=== PATIENT | female | born 1950 | race Caucasian/White ===

== ENCOUNTER → 2017-03-28 | Outpatient (CLI) | payer BC ==
--- NOTE | 2017-03-28 15:53 | RAD ---
DATE: 03/28/2017 EXAM: DIGITAL SCREEN BILAT W/CAD HISTORY: Screening COMPARISON: None. This study was interpreted with the benefit of Computerized Aided Detection (CAD). FINDINGS: Breast Density: SCATTERED The breast parenchyma shows scattered fibroglandular densities. Breast parenchyma level B. No dominant mass or suspect group of calcifications is seen IMPRESSION: 9 finding BI-RADS CATEGORY: 2 BENIGN FINDING(S) RECOMMENDED FOLLOW-UP: 12M 12 MONTH FOLLOW-UP PQRS compliance statement: Patient information was entered into a reminder system with a target due date 03/28/2018 for the next mammogram. Mammography is a sensitive method for finding small breast cancers, but it does not detect them all and is not a substitute for careful clinical examination. A negative mammogram does not negate a clinically suspicious finding and should not result in delay in biopsying a clinically suspicious abnormality. "Our facility is accredited by the [employer] Mammography Program."
== END | disposition home or self-care (01) ==
LOC: MAMMO 15:22
PROVIDERS: ATTEND Family Medicine
DX: Z12.31 Encounter for screening mammogram for malignant neoplasm of breast (principal)
CPT/HCPCS: G0202; 77067

== ENCOUNTER → 2017-11-03 | Outpatient (CLI) | payer MEDICARE | END | disposition home or self-care (01) | LOC: MAMMO 13:39 | DX: N63.10 Unspecified lump in the right breast, unspecified quadrant (principal) | CPT/HCPCS: 76641; 77065 ==

== ENCOUNTER → 2017-11-22 | Outpatient (CLI) | payer MEDICARE | END | disposition home or self-care (01) | LOC: US 12:16 | DX: N63.10 Unspecified lump in the right breast, unspecified quadrant (principal) | CPT/HCPCS: 19081; 76942; 77065; 88305; 88341; 88342; 88361; C1713 ==

== ENCOUNTER → 2017-11-30 | Outpatient (CLI) | payer MEDICARE | END | disposition home or self-care (01) | LOC: PETSC 08:16 | DX: C50.411 Malignant neoplasm of upper-outer quadrant of right female breast (principal); Z85.3 Personal history of malignant neoplasm of breast | CPT/HCPCS: 78815; A9552 ==

== ENCOUNTER 2017-12-05 06:55 | Day surgery (SDC) | payer MEDICARE ==
[2017-12-05] MEDS ORDERED: LIDOCAINE 1% PF 2 ML VIAL. ID ×2 (07:00)
[2017-12-05] MEDS ORDERED: MORPHINE SULFATE 2 MG/ML DISP.SYRIN. IV ×2 (07:00)
[2017-12-05] MEDS ORDERED: HYDROmorphone 2 MG/ML VIAL IV ×2 (07:00)
[2017-12-05] MEDS ORDERED: fentaNYL PF VIAL 100 MCG/2 ML VIAL IV ×2 (07:00)
[2017-12-05] MEDS ORDERED: PROCHLORPERAZINE 10 MG/2 ML VIAL. IV ×2 (07:00)
[2017-12-05] MEDS: IV RINGERS,LACTATED 1000ML 1,000 ML IV ×4 (07:26→11:11)
[2017-12-05] MEDS ORDERED: LIDOCAINE 1% PF 30 ML VIAL. ×2 (07:43)
[2017-12-05] MEDS ORDERED: LIDOCAINE 2% PF Vial for OR 5 ML VIAL. ×2 (08:00)
[2017-12-05] MEDS ORDERED: PROPOFOL 20 ML IV ×2 (08:00)
[2017-12-05] MEDS ORDERED: fentaNYL PF VIAL 100 MCG/2 ML VIAL ×2 (08:01)
[2017-12-05] MEDS ORDERED: MIDAZOLAM HCL/PF 2 MG/2 ML VIAL. ×2 (08:01)
[2017-12-05] MEDS: ceFAZolin SODIUM 1 GM in IV DEXTROSE 5% 50 ML IV (08:45)
[2017-12-05] MEDS: HEPARIN SODIUM 5,000 UNIT in IV NORMAL SALINE 500ML BAG 500 ML IRR (09:14)
[2017-12-05] MEDS ORDERED: SEVOFLURANE 31 TO 60 MINUTES. IH ×2 (09:22)
[2017-12-05] MEDS ORDERED: SEVOFLURANE 61 TO 120 MINUTES. IH ×2 (09:22)
[2017-12-05] MEDS ORDERED: ONDANSETRON PF 4 MG/2 ML VIAL. ×2 (09:22)
[2017-12-05] MEDS ORDERED: DEXAMETHASONE SOD PHOS 20 MG/5 ML VIAL. ×2 (09:22)
[2017-12-05] MEDS: fentaNYL PF VIAL 100 MCG/2 ML VIAL IV ×4 (09:51→10:05)
[2017-12-05] MEDS: HYDROcodone/APAP 5/325MG 1 TAB TABLET PO ×2 (10:39)
[2017-12-05] MEDS: ONDANSETRON PF 4 MG/2 ML VIAL. IV ×2 (11:06)
== END 2017-12-05 12:04 | disposition home or self-care (01) ==
LOC: SURG 06:55
DX: C50.919 Malignant neoplasm of unspecified site of unspecified female breast (principal); C50.911 Malignant neoplasm of unspecified site of right female breast (principal); E78.5 Hyperlipidemia, unspecified; E66.9 Obesity, unspecified; K21.9 Gastro-esophageal reflux disease without esophagitis; Z68.26 Body mass index [BMI] 26.0-26.9, adult; Z80.42 Family history of malignant neoplasm of prostate; Z79.899 Other long term (current) drug therapy
CPT/HCPCS: 36556; 36561; 71045; 77001; C1788; J0690; J1100; J1644; J2250; J2405; J2704; J3010; J7040

== ENCOUNTER → 2017-12-06 | Outpatient (CLI) | payer MEDICARE | END | disposition home or self-care (01) | LOC: ECHO 13:57 | DX: I08.1 Rheumatic disorders of both mitral and tricuspid valves (principal); I27.20 Pulmonary hypertension, unspecified; C50.919 Malignant neoplasm of unspecified site of unspecified female breast | CPT/HCPCS: 93306 ==

== ENCOUNTER 2018-05-07 06:52 | Observation (INO) | payer MEDICARE, BC ==
[2018-05-07] MEDS ORDERED: LIDOCAINE 1% PF 2 ML VIAL. ID (07:00)
[2018-05-07] MEDS ORDERED: PROCHLORPERAZINE 10 MG/2 ML VIAL. IV (07:00)
[2018-05-07] MEDS: LIDOCAINE WITH 8.4% SOD BICARB 3 ML DISP.SYRIN. INJ ×2 (07:00→09:34)
[2018-05-07] MEDS ORDERED: MORPHINE SULFATE 2 MG/ML DISP.SYRIN. IV ×2 (07:00→12:15)
[2018-05-07] MEDS ORDERED: fentaNYL PF VIAL 100 MCG/2 ML VIAL IV ×2 (07:00)
[2018-05-07] MEDS ORDERED: ONDANSETRON PF 4 MG/2 ML VIAL. IV ×2 (07:00→12:15)
[2018-05-07] MEDS: IV RINGERS,LACTATED 1000ML 1,000 ML IV (07:48)
[2018-05-07] MEDS ORDERED: METHYLENE BLUE 1% 10 ML VIAL. (07:56)
[2018-05-07] MEDS ORDERED: LIDOCAINE 2% PF Vial for OR 5 ML VIAL. (09:18)
[2018-05-07] MEDS ORDERED: fentaNYL PF VIAL 250 MCG/5 ML VIAL (09:18)
[2018-05-07] MEDS ORDERED: PROPOFOL 20 ML IV (09:18)
[2018-05-07] MEDS ORDERED: MIDAZOLAM HCL/PF 2 MG/2 ML VIAL. (09:18)
[2018-05-07] MEDS ORDERED: ONDANSETRON PF 4 MG/2 ML VIAL. (09:56)
[2018-05-07] MEDS ORDERED: DEXAMETHASONE SOD PHOS 20 MG/5 ML VIAL. (09:56)
[2018-05-07] MEDS: ISOSULFAN BLUE 50 MG/5 ML VIAL. SQ (10:48)
[2018-05-07] MEDS ORDERED: IV 1/2 NORMAL SALINE 1,000 ML IV (12:12)
[2018-05-07] MEDS ORDERED: 0.9 % SODIUM CHLORIDE 10 ML DISP.SYRIN. IV (12:15)
[2018-05-07] MEDS ORDERED: HYDROcodone/APAP 5/325MG 1 TAB TABLET PO (12:15)
[2018-05-07] MEDS ORDERED: SEVOFLURANE 61 TO 120 MINUTES. IH (12:41)
[2018-05-07] MEDS: HYDROcodone/APAP 5/325MG 1 TAB TABLET PO ×2 (13:56→21:06)
[2018-05-08] MEDS: HYDROcodone/APAP 5/325MG 1 TAB TABLET PO ×2 (06:41→12:16)
== END 2018-05-08 12:43 | disposition home or self-care (01) ==
LOC: MAMMO 06:52 → 4 NORTH 12:12
DX: C50.911 Malignant neoplasm of unspecified site of right female breast (principal)
CPT/HCPCS: 19083; 38792; 76098; 76942; 77065; 88305; 88307; 88331; 88342; 96374; A7015; A9541; G0378; G0379; J0690; J1100; J2001; J2250; J2405; J2704; J3010; J7120; Q9968

== ENCOUNTER → 2018-07-19 | Outpatient (CLI) | payer MEDICARE, OTHER ==
[2018-05-08 11:13] VITALS: BP 109/64
[~2018-07-19] MED LIST: ACET500T33 PO; ALEN70TA5 PO; CALC600T23 PO; CETI10TA22 PO; CHOL10002 PO; HYDR-2758 PO; HYDR-971 PO; NYST100054 SWSW; POTA20TA82 PO; VITAMIN D PO; [UNRECOGNIZED DRUG - OTHER] PO
--- NOTE | 2018-07-19 12:09 | RAD ---
Examination: GUID NDL PLACE/ASPI/BX History: rt thyroid nodule Comparison/Correlation: None Findings: Risks and benefits of ultrasound-guided thyroid fine-needle aspiration were discussed with the patient and informed consent was obtained. Blunting of the right lower neck with ChloraPrep was performed. Sterile towels were then placed. Centrally, 4 cc 1 percent lidocaine was injected under ultrasound guidance anterolaterally at the lower thyroid mass level. A 25-gauge needle attached to a 10 cc syringe was then utilized to aspirate the right thyroid mass. Total of 4 25-gauge needles were utilized and specimens were provided to the pathology department accounting representative in the room at the time of the procedure. The patient tolerated procedure well without a hematoma or other complication at the conclusion of the exam. Impression: Successful aspiration of the right thyroid lobe mass. Electronically signed by: Yash Terrell MD (07/19/2018 12:05 PM) [facility]
--- NOTE | 2018-07-20 18:08 | PATHOLOGY ---
Note [facility] Accession Number: [id number] TESTS RESULT FLAG UNITS REF RANGE LAB Clinician Provided Cytology Information No. of containers..01 Other (Miscellaneous) Source: RIGHT THYROID DIAGNOSIS: RIGHT THYROID NEGATIVE FOR MALIGNANT CELLS. BETHESDA CATEGORY II. SPECIMEN CONSISTS OF BENIGN FOLLICULAR CELLS, HEMOSIDERIN-LADEN MACROPHAGES, COLLOID, AND BLOOD. THIS PATTERN IS CONSISTENT WITH A BENIGN FOLLICULAR NODULE. THIS INTERPRETATION INCLUDES EVALUATION OF A CELL BLOCK. Pathologist ICD10: 02 E04.1 Signed out by: Stan Maher MD, Pathologist NPI- [id number] Performed by: Eldon Antonio, Mat Tester ([facility]) Gross description: 01 30ML, RED, CLOUDY /LCS FLAG LEGEND: L-Low Normal,H-High Normal,LL-Alert Low,HH-Alert High <-Panic Low,>-Panic High,A-Abnormal,AA-Critical Abnormal Performed at: [facility] [place] [address] [place] [address] Dax Eden MD, 02 [facility] [address] [place] [address] Stan Maher MD, Specimen Comment: A courtesy copy of this report has been sent to Specimen Comment: [phone]. Specimen Comment: Report sent to DR LAMB Specimen Comment: A duplicate report has been generated due to demographic updates. Performed at: 01 [facility] [address], [place], [place] [id number] MD Dax Eden MD Phone: [phone]
== END | disposition home or self-care (01) ==
LOC: US 08:05
PROVIDERS: ATTEND Surgery
DX: E04.1 Nontoxic single thyroid nodule (principal); Z91.011 Allergy to milk products
CPT/HCPCS: 10022; 76942; 88173; 88305

== ENCOUNTER → 2018-11-13 | Outpatient (CLI) | payer MEDICARE ==
[2018-05-08 11:13] VITALS: BP 109/64
[~2018-11-13] MED LIST changes: -HYDR-2758 PO; +HYDR-2761 PO; +HYDR-3164 PO; -HYDR-971 PO
--- NOTE | 2018-11-13 13:45 | RAD ---
DATE: 11/13/2018 EXAM: MAMMO MEHREEN LINDA BILAT HISTORY: Right breast cancer, grade 3 poorly differentiated. COMPARISON: Prior mammograms from 05/07/2018, 11/03/2017, 03/28/2017 This study was interpreted with the benefit of Computerized Aided Detection (CAD). Breast Density: SCATTERED The breast parenchyma shows scattered fibroglandular densities. Breast parenchyma level B. FINDINGS: 3-D tomosynthesis was performed in CC and MLO projections. 2-D CC and MLO views were obtained. Right breast: Subtle architectural distortion is identified in the posterior upper right breast at site of prior lumpectomy. No suspicious masses are identified. No microcalcifications are noted. Left breast: No suspicious medical stations, masses or areas of architectural distortion. IMPRESSION: 1. Post therapy changes are identified in the right breast. Findings are benign. Recommend 12 month follow-up mammogram or sooner if symptoms warrant. 2. Negative left mammogram. BI-RADS CATEGORY: 2 BENIGN FINDING(S) RECOMMENDED FOLLOW-UP: 12M 12 MONTH FOLLOW-UP PQRS compliance statement: Patient information was entered into a reminder system with a target due date 11/13/2019 for the next mammogram. Mammography is a sensitive method for finding small breast cancers, but it does not detect them all and is not a substitute for careful clinical examination. A negative mammogram does not negate a clinically suspicious finding and should not result in delay in biopsying a clinically suspicious abnormality. "Our facility is accredited by the [employer] Mammography Program."
== END | disposition home or self-care (01) ==
LOC: MAMMO 12:51
PROVIDERS: ATTEND Internal Medicine Hematology & Oncology
DX: Z08 Encounter for follow-up examination after completed treatment for malignant neoplasm (principal); Z85.3 Personal history of malignant neoplasm of breast
CPT/HCPCS: 77066; G0279; 77062

== ENCOUNTER → 2019-02-27 | Outpatient (CLI) | payer MEDICARE ==
[2018-05-08 11:13] VITALS: BP 109/64
[~2019-02-27] MED LIST changes: -ALEN70TA5 PO; +ALEN70TA6 PO; +ANAS1TAB47 PO
--- NOTE | 2019-02-27 16:18 | RAD ---
Thyroid ultrasound, 02/27/2019: HISTORY: Follow-up thyroid nodule The right lobe of the gland measures 5.9 x 2.9 x 3.2 cm while the left lobe of the gland measures 4.8 x 1.0 x 1.1 cm. The gland is heterogeneous. There is a dominant heterogeneous solid nodule in the right lobe of the gland. There is internal color flow. The nodule is predominantly isoechoic relative to the remainder of the gland although there are smaller hypoechoic and/or cystic spaces within this mass. The mass demonstrates a hypoechoic rim. No internal calcifications are seen. In the sagittal plane it measures 4.5 cm in length compared to a measurement of 3.7 cm on the previous study of 01/01/2018. Its AP dimension on the sagittal images is 2.9 cm, similar to the previous exam. IMPRESSION: Dominant solid nodule in the right thyroid lobe which appears to have increased in size since 01/01/2018. Correlation with the results of the prior thyroid biopsy is suggested. Electronically signed by: Bassam Jacques MD (02/27/2019 4:15 PM) [facility]
== END | disposition home or self-care (01) ==
LOC: US 14:03
PROVIDERS: ATTEND Surgery
DX: E04.1 Nontoxic single thyroid nodule (principal)
CPT/HCPCS: 76536

== ENCOUNTER → 2019-03-25 | Outpatient (CLI) | payer MEDICARE ==
[2018-05-08 11:13] VITALS: BP 109/64
--- NOTE | 2019-03-25 17:07 | KCIC ---
EXAM: Dual energy x-ray absorptiometry (DEXA). HISTORY: Osteopenia. COMPARISON: None. TECHNIQUE: Dual energy x-ray absorptiometry of the lumbar spine and left hip was performed. Calculation of bone mineral density based on standard deviations above or below the expected young adult normal value (T-score) was completed. FINDINGS: The average bone mineral density in the 1st through 4th lumbar vertebrae is 0.963 g/cmxcm, corresponding with a T-score of -0.8. The average total bone mineral density in the left hip is 0.771 g/cmxcm, corresponding with a T-score of -1.4. IMPRESSION: 1. Osteopenia measured at the left hip. 2. Normal bone mineral density measured at the lumbar spine. Note: Definitions established by the World Health Organization: 1. Normal: T-score is -1.0 or above. 2. Osteopenia: T-score is between -1.0 and -2.5 . 3. Osteoporosis: T-score is -2.5 or below. Electronically signed by: Megan Aguilar MD (03/25/2019 5:04 PM) [facility]
== END | disposition home or self-care (01) ==
LOC: KCIC DEXA 03-11 14:43
PROVIDERS: ATTEND Internal Medicine Hematology & Oncology
DX: M85.80 Other specified disorders of bone density and structure, unspecified site (principal); Z17.0 Estrogen receptor positive status [ER+]; Z79.811 Long term (current) use of aromatase inhibitors; Z85.3 Personal history of malignant neoplasm of breast
CPT/HCPCS: 77080

== ENCOUNTER 2019-05-20 06:09 | Observation (INO) | payer MEDICARE ==
[2019-05-20] VITALS (11 sets, daily range): BP systolic 116–146; BP diastolic 63–81
[~2019-05-20] VITALS: Ht 162.6 cm; Wt 61.5 kg
[~2019-05-20 06:09] MED LIST changes: +CYAN-25 PO
[2019-05-20] MEDS ORDERED: PROCHLORPERAZINE 10 MG/2 ML VIAL. IV PRN (07:00)
[2019-05-20] MEDS ORDERED: MORPHINE SULFATE 2 MG/ML VIAL. IV PRN (07:00)
[2019-05-20] MEDS ORDERED: fentaNYL PF VIAL 100 MCG/2 ML VIAL IV PRN ×2 (07:00)
[2019-05-20] MEDS ORDERED: IV RINGERS,LACTATED 1000ML 1,000 ML IV SCH (07:00)
[2019-05-20] MEDS ORDERED: ONDANSETRON PF 4 MG/2 ML VIAL. IV PRN ×2 (07:00→09:30)
[2019-05-20] MEDS ORDERED: LIDOCAINE 1% PF 2 ML VIAL. ID PRN (07:00)
[2019-05-20] MEDS ORDERED: HYDROmorphone 2 MG/ML VIAL IV PRN ×2 (07:00→09:30)
[2019-05-20] MEDS ORDERED: ROCURONIUM 50 MG/5 ML VIAL. ONE (07:13)
[2019-05-20] MEDS ORDERED: MIDAZOLAM HCL/PF 2 MG/2 ML VIAL. ONE (07:13)
[2019-05-20] MEDS ORDERED: ONDANSETRON PF 4 MG/2 ML VIAL. ONE (07:13)
[2019-05-20] MEDS ORDERED: DEXAMETHASONE SOD PHOS 4 MG/ML VIAL ONE (07:13)
[2019-05-20] MEDS ORDERED: PROPOFOL 20 ML IV ONE (07:13)
[2019-05-20] MEDS ORDERED: LIDOCAINE 2% PF 5 ML VIAL. ONE (07:13)
[2019-05-20] MEDS ORDERED: PROPOFOL 100 ML IV ONE (07:20)
[2019-05-20] MEDS ORDERED: REMIFENTANIL 1 MG VIAL. IV ONE (07:20)
[2019-05-20] MEDS ORDERED: GLYCOPYRROLATE 1 MG/5 ML VIAL. ONE (07:37)
[2019-05-20] MEDS ORDERED: ePHEDrine PF IN SALINE 50 MG/10 ML SYRINGE. IV ONE (08:07)
[2019-05-20] MEDS ORDERED: PHENYLEPHRINE in 0.9% NACL PF 1 MG/10 ML SYRINGE. IV ONE (08:07)
[2019-05-20] MEDS ORDERED: SEVOFLURANE 61 TO 120 MINUTES. IH ONE (08:08)
[2019-05-20] MEDS ORDERED: 0.9 % SODIUM CHLORIDE 20 ML VIAL. IJ ONE (08:08)
[2019-05-20] MEDS ORDERED: NEOSTIGMINE METHYLSULFATE 5 MG/5 ML SYRINGE. ONE (08:42)
--- NOTE | 2019-05-20 09:25 | PDOC4 ---
Operative Note Operative Note Operative Note: Preoperative Diagnosis: Right thyroid nodule Postoperative Diagnosis: Same Procedure: Right thyroidectomy Surgeon: Marco A Trauma Surgeon: Chitra Gay Anesthesia: Gen. EBL: 50 mL Specimen: Right thyroid and isthmus, stitch at superior pole to pathology Drains: None Complications: None Indication: The patient is a 68-year-old female who had a known thyroid nodule that had been monitored. Her most recent sonogram showed increased growth. Based on its size and growth pattern the patient would like to proceed with excision. The plan is for right thyroidectomy with pathologic frozen section and a possible total thyroidectomy. The risks of surgery were discussed which include bleeding, infection, recurrent laryngeal nerve injury, pain, hypoparathyroidism, scar tissue, voice changes, anesthetic risk, potential need for additional surgery or procedure. She understands and would like to proceed. Description: The patient was taken to the operating room and placed supine on the operating table. Gen. anesthesia was performed. The Nims device was assembled. The anterior neck was prepped with ChloraPrep and draped in a standard surgical manner. A curved incision was made 2 fingerbreadths above the sternal notch. Cautery dissection was carried down through the platysma. Subplatysmal flaps were developed superiorly and inferiorly. The strap muscle fascia was divided in the midline. The Mahorner retractor was used to facilitate exposure. We began mobilizing the right thyroid lobe. The nodule was readily identified in the inferior aspect and occupied much of the thyroid. The nodule mobilized fairly easily with no invasive features. The vessels of both the superior and inferior poles were ligated with 2-0 and 3-0 Vicryl and divided. The Harmonic scalpel assisted with mobilization of the right thyroid as well. Some additional remaining vessels of the mid lobe were ligated with 3-0 Vicryl and divided. The nodule and lobe mobilized readily toward the midline and the dissection was kept away from the tracheoesophageal groove. There was a visualized glandular structure with fat suggesting a possible parathyroid gland which was left in situ. With the Harmonic scalpel the thyroid was divided to include the isthmus with the specimen. The entire right thyroid lobe was removed and a stitch marked the superior pole. This was sent to pathology and frozen section did not show findings of papillary carcinoma. Hemostasis was good and no nodules were palpated in the left thyroid lobe. The strap muscle fascia was approximated with 3-0 Vicryl. The platysma was closed with 3-0 Vicryl. The skin was closed with 4-0 Monocryl. Steri-Strips and a sterile dressing were applied. The patient tolerated the procedure well and was sent to the recovery room in stable condition. At the end of the case all counts were correct. LILY LAMB MD May 20, 2019 09:25
[2019-05-20] MEDS ORDERED: IV NORMAL SALINE 1000ML BAG 1,000 ML IV SCH (09:28)
[2019-05-20] MEDS ORDERED: HYDROcodone/APAP 5/325MG 1 TAB TABLET PO PRN ×2 (09:30)
[2019-05-20] MEDS ORDERED: NALOXONE 0.4 MG/ML VIAL. IV PRN (09:30)
[2019-05-20] MEDS ORDERED: 0.9 % SODIUM CHLORIDE 10 ML DISP.SYRIN. IV PRN (09:30)
[2019-05-20] MEDS ORDERED: ACETAMINOPHEN 500 MG TABLET PO PRN (09:45)
--- NOTE | 2019-05-20 10:05 | NUR ---
Arrived to unit by bed from PACU. Alert and oriented x's 4. Dressing located mid neck is d/i. Pt taking sips water without difficulty. Has ice pack at incision site. Moves all extremities without difficulty. IVF's intact and infusing. SCD's on bilaterally. Oriented to room and controls. Side rails up x's 2 with call light in reach. Cont. monitor.
--- NOTE | 2019-05-20 11:52 | NUR ---
Ambulated to bathroom with steady gait. Voided 200cc clear, yellow urine. Washed hands and face and return back to bed. Cont. monitor.
[2019-05-20] MEDS: ANASTROZOLE 1 MG TABLET PO SCH (17:46)
[2019-05-20] MEDS: IV 1/2 NORMAL SALINE 1,000 ML IV SCH ×2 (18:08→23:46)
--- NOTE | 2019-05-20 18:08 | NUR ---
Doing well, eating and drinking.
[2019-05-21 02:30] VITALS: BP 102/61
[2019-05-21 06:13] VITALS: BP 96/58
--- NOTE | 2019-05-21 06:33 | NUR ---
Slept well. Dressing D/I.
[2019-05-21] MEDS: CALCIUM CARBONATE 500 MG TABLET PO SCH ×2 (08:12→08:18)
[2019-05-21] MEDS: ANASTROZOLE 1 MG TABLET PO SCH (08:17)
[2019-05-21] MEDS ORDERED: CHOLECALCIFEROL (VITAMIN D3) 1,000 UNIT TABLET PO SCH (09:00)
[2019-05-21] MEDS ORDERED: CETIRIZINE HCL 10 MG TABLET. PO SCH (09:00)
[2019-05-21] MEDS ORDERED: CYANOCOBALAMIN (VITAMIN B-12) 1,000 MCG TABLET. PO SCH (09:00)
[2019-05-21] MEDS ORDERED: HYDR-2761 PO (11:11)
--- NOTE | 2019-05-21 11:12 | DISCH ---
DISCHARGE INSTRUCTIONS Condition on Discharge Condition on Discharge: Stable Activity After Discharge Activity Instructions for Disc: No restrictions, Activity as tolerated Bathing Instructions: Shower-keep dressing dry Lifting Instructions after Dis: No heavy lifting, No pulling or pushing Exercise Instruction after Dis: Progress as tolerated Driving Instructions after Dis: Do not drive today Weight Bearing Status after Di: No restrictions Diet after Discharge Diet after Discharge: Regular Diet Texture: Regular Liquid Texture: Thin Liquid Wound Incision Care Wound/Incision Care: Ice to area for comfort, May get incision wet, No wound care needed Contacting the DRAyana after DC Call your doctor for: Concerns you may have Follow-Up Follow Up With: Dr. Strickland [phone] 10-14 days Treatment/Equipment after DC Adaptive Equipment Issued: None VANESSA ASHLEY APRN May 21, 2019 11:12
--- NOTE | 2019-05-21 11:15 | PDOC ---
SURGICAL PROGRESS NOTE Subjective tolerating diet no significant pain voice strong, no difficulty swallowing Vital Signs Vital Signs Date Time Temp Pulse Resp B/P (MAP) Pulse Ox O2 Delivery O2 Flow Rate FiO2 05/21/19 08:00 Room Air 05/21/19 06:13 98.3 62 17 96/58 (71) 100 98.3 05/20/19 09:03 10 I&O Intake and Output 05/21/19 07:00 Intake Total 2850 ml Output Total 1410 ml Balance 1440 ml Intake Oral 1900 ml IV Total 950 ml Output Urine Total 1400 ml Estimated Blood Loss 10 ml # Voids 2 General: Alert, Oriented X3, Cooperative, No acute distress HEENT: Other (incision c/d/i, no erythema, no swellling or ecchymosis) Problem List Problems Medical Problems: (1) Thyroid nodule Status: Chronic Assessment/Plan s/p thyroidectomy dc home FU 2 weeks script on chart VANESSA ASHLEY APRN May 21, 2019 11:15
[2019-05-21 11:23] VITALS: BP 113/64
--- NOTE | 2019-05-21 11:29 | PDOC3 ---
Discharge Summary Visit Information Date of Admission: May 20, 2019 Date of Discharge: May 21, 2019 Admitting Diagnosis: Right thyroid nodule Final Diagnosis Problems Medical Problems: (1) Thyroid nodule Status: Chronic Brief Hospital Course Allergies Allergies Coded Allergies Type Severity Reaction Last Updated Verified lactose Allergy Mild INTOLERANCE-n/v and diarrhea 05/15/19 Yes Vital Signs Vital Signs Date Time Temp Pulse Resp B/P (MAP) Pulse Ox O2 Delivery O2 Flow Rate FiO2 05/21/19 11:23 98.4 55 16 113/64 (80) 98 Room Air 98.4 05/20/19 09:03 10 Brief Hospital Course Ms. Gale is a 68 old female who underwent Right thyroidectomy. Postoperatively tolerating diet, ambulating, pain managed. Discharge home Discharge Information Condition at Discharge: Stable Follow Up: Weeks (2) Disposition/Orders: D/C to Home Scheduled Acetaminophen (Tylenol Extra Strength) 500 Mg Tablet, 1,000 MG PO PRN, (Reported) Entered as Reported by: MINI LEMON on 12/01/17 1708 Last Action: Converted on 05/20/19934 by LILY LAMB Anastrozole (Arimidex) 1 Mg Tablet, 1 MG PO DAILY for breast cancer, (Reported) Entered as Reported by: AR HENSLEY on 02/15/19 0851 Last Taken: Unknown Dose on 05/19/19 Last Action: Converted on 05/20/19934 by LILY LAMB Calcium Carbonate (Calcium Carbonate) 600 Mg Tablet, 1,200 MG PO DAILY, (Reported) Entered as Reported by: MINI LEMON on 12/01/17 1707 Last Action: Converted on 05/20/19934 by LILY LAMB Cetirizine Hcl (Zyrtec) 10 Mg Tablet, 1 TAB PO DAILY, (Reported) Entered as Reported by: MINI LEMON on 12/01/17 1703 Last Action: Continued on 05/20/19934 by LILY LAMB Cholecalciferol (Vitamin D3) (Vitamin D) 1,000 Unit Tablet, 2,000 UNIT PO DAILY, (Reported) Entered as Reported by: MINI LEMON on 05/04/18 1230 Last Action: Continued on 05/20/19934 by LILY LAMB Cyanocobalamin (Vitamin B-12) (Vitamin B-12) 1,000 Mcg Tablet, 1,000 MCG PO DAILY for VITAMIN , (Reported) Entered as Reported by: JAMILAH IGNACIO on 05/15/19 1762 Last Action: Continued on 05/20/19 0935 by LILY LAMB Scheduled PRN Hydrocodone Bit/Acetaminophen (Hydrocodone-Apap 5-325 ) 1 Tab Tablet, 1 TAB PO PRN Q4HRS PRN for MILD PAIN 1-3, #30 Ref 0 Prescribed by: Vanessa Craig on 05/21/19 1111 VANESSA CRAIG IRONER OR PRESSER May 21, 2019 11:29
--- NOTE | 2019-05-21 11:50 | NUR ---
Discharge instructions given with prescription. Answered questions and concerns. Verbalized understanding. Waiting for ride home.
--- NOTE | 2019-05-21 13:15 | NUR ---
Discharge home. Accompanied by Karen crockett.
--- NOTE | 2019-05-28 15:07 | PATHOLOGY ---
[facility] Accession Number: [id number] . 01 Material submitted: . thyroid gland - RIGHT THYROID - FS. Modifiers: right . 01 Clinical history: . R thyroid nodule . 02 Frozen section diagnosis: . INTRAOPERATIVE CONSULTATION WITH FROZEN SECTION: FSA1. Right thyroid lobe, excision: -Thinly encapsulated thyroid nodule - final diagnosis pending examination of entire nodule capsule. - The results are reported to Dr. Strickland. (JPM:ritchie 05/20/2019) . FROZEN SECTION GROSS DESCRIPTION: The specimen is received fresh for intraoperative consultation and is designated "right thyroid, stitch at superior pole". This consists of a lobe of reddish purple thyroid tissue which weighs 24 grams and measures 4.5 x 4.0 x 2.5 cm in greatest dimension. There is a small segment of apparent isthmus measuring 1.1 cm in length and up to 1.4 cm in width. There is a suture attached to the superior pole. The anterior capsular surface is smooth and glistening. The posterior surface shows focal brown-black cautery changes. There is an apparent soft rubbery thyroid nodule which occupies most of the lobe. The margins are inked. Sectioning reveals a well demarcated thyroid nodule having a yellowish-brown cut surface and showing focal cystic change and hemorrhage. The nodule measures up to 3.4 cm in greatest dimension. The remaining thyroid parenchyma is pink-red and rubbery. A clearance representative portion of the nodule is submitted for frozen section as FSA1. The tissue remaining from frozen section is submitted for permanent sections as A1. . (JPM:pit 05/20/2019) . Frozen section performed at [facility], [address] [place] [address], [place] [address]. AMOL/VERONICA . 02 Diagnosis: Thyroid lobe, right thyroidectomy: - Well-demarcated thyroid nodule, measuring 3.4 cm, with atypical features. See comment. . (JPM:mml; 05/28/2019) QLM/05/28/2019 . 02 Comment: The entire thyroid lobe is submitted for histologic evaluation. There is a well-circumscribed thyroid nodule having a microfollicular and macrofollicular architecture. The follicles contain eosinophilic colloid. There are multiple areas within the nodule where the follicles are lined by follicular cells showing atypical features. These areas show nuclear enlargement and nuclear overlap with occasional nuclear clearing and nuclear grooves. There are no distinct papillary foci within the nodule. There is no evidence of capsular or vascular invasion. A limited panel of immunoperoxidase stains is obtained and yields the following results: . Cytokeratin 19 (A13): Follicular cells within nodule focally positive HBME (A13): Follicular cells within nodule show focal weak positivity and are largely negative CD56 (A13): Follicular cells within nodule focally positive . Because of the atypical nuclear changes found within the thyroid nodule, the case is being sent to [facility] for expert consultation. The results of this consultation and final diagnosis will be the subject of an addendum report. The case is also examined by Dr. Madelyn Carrasquillo, who concurs with the diagnosis. . (JPM:mm; 05/28/2019) . 02 Electronically signed: . Stan Maher MD, Pathologist NPI- [id number] . 01 Gross description: . SEE FROZEN SECTION GROSS DESCRIPTION: . The remainder of the nodule is submitted in A2-A14. (SDY; 05/20/2019) SYU/SYU . 02 Pathologist provided ICD-10: E04.1 . 02 CPT . 292642, N58731, S15859, [id number] Specimen Comment: A courtesy copy of this report has been sent to Specimen Comment: [phone], . Specimen Comment: Report sent to / DR BINGHAM Performed at: 01 [facility] [address], [place] [id number] MD Dax Eden MD Phone: [phone] Performed at: 02 [facility] [address] [place], [place] [id number] MD Stan Maher MD Phone: [phone]
== END 2019-05-21 13:15 | disposition home or self-care (01) ==
LOC: SURG 06:09 → 4 SOUTHEST 09:20
PROVIDERS: ADMIT Surgery; ATTEND Surgery
PROC: 0GBH0ZZ Excision of Right Thyroid Gland Lobe, Open Approach (ICD-10-PCS; principal; 2019-05-20 07:30)
DX: E04.1 Nontoxic single thyroid nodule (principal); E78.5 Hyperlipidemia, unspecified; Z85.3 Personal history of malignant neoplasm of breast; Z82.49 Family history of ischemic heart disease and other diseases of the circulatory system
CPT/HCPCS: 60210; 88307; 88331; 88341; 88342; 96374; A7015; G0378; G0379; J0171; J0690; J1100; J1170; J2001; J2250; J2370; J2405; J2704; J2710; J3490

== ENCOUNTER → 2019-11-19 | Outpatient (CLI) | payer MEDICARE ==
[~2019-11-19] MED LIST changes: -CETI10TA22 PO; +CETI10TA24 PO; +POTA20TA4 PO; -POTA20TA82 PO
--- NOTE | 2019-11-19 13:55 | RAD ---
EXAM: BILATERAL 3-D DIGITAL DIAGNOSTIC MAMMOGRAPHY. HISTORY: Personal history of right breast cancer status post breast conservation therapy. Yearly surveillance. TECHNIQUE: Bilateral full field digital images were obtained in CC and MLO projections with tomosynthesis. Computer-aided detection was applied. COMPARISON: 11/13/2018. COMPOSITION: C. The breasts are heterogeneously dense, which may obscure small masses. FINDINGS: Post breast conservation therapy changes are noted on the right. There is mild postprocedural skin thickening. Scattered and vascular calcifications are benign. There are no suspicious masses, microcalcifications or architectural distortion. BI-RADS CATEGORY 2: Benign. RECOMMENDATION: 1. Ongoing bilateral surveillance mammography in one year. If mammography demonstrates dense breast tissue (heterogenously dense or extremely dense, category C or D), which could hide abnormalities, and if other risk factors for breast cancer have been identified, supplemental screening tests that may be suggested by the ordering physician may be of benefit. Dense breast tissue, in and of itself, is a relatively common condition. Therefore, this information is not provided to cause undue concern, but rather to raise awareness and to promote discussion with the referring physician regarding the presence of other risk factors, in addition to dense breast tissue. The results of this mammography examination is provided to the patient and referring physician. The patient should contact their referring physician if any questions or concerns exist regarding this report. PQRS compliance statement - Patient information was entered into a reminder system with a target due date for the next mammogram. "Our facility is accredited by the [employer] Mammography [employer]." Electronically signed by: Gagan Mae MD (11/19/2019 1:52 PM) [id number]
== END | disposition home or self-care (01) ==
LOC: MAMMO 12:58
PROVIDERS: ATTEND Internal Medicine Hematology & Oncology
DX: C50.511 Malignant neoplasm of lower-outer quadrant of right female breast (principal); Z17.0 Estrogen receptor positive status [ER+]; N64.89 Other specified disorders of breast
CPT/HCPCS: 77066

== ENCOUNTER → 2020-12-02 | Outpatient (CLI) | payer MEDICARE ==
[~2020-12-02] MED LIST changes: -ALEN70TA6 PO; +ALEN70TA71 PO; -CETI10TA24 PO; +CETI10TA74 PO
--- NOTE | 2020-12-02 17:26 | RAD ---
DATE: 12/02/2020 EXAM: MAMMO MEHREEN LINDA PAGEAT HISTORY: History of right breast cancer and 2018 postlumpectomy with radiation and chemotherapy. Routine annual mammogram. COMPARISON: 11/19/2019: 12/12/2018, 11/03/2017, 03/28/2017 This study was interpreted with the benefit of Computerized Aided Detection (CAD). Breast Density: HETERO The breast parenchyma is heterogenously dense, which could reduce sensitivity of mammography. Breast parenchyma level C. FINDINGS: Surgical changes of lumpectomy in the posterior outer right breast are unchanged. No suspicious mass, calcification, or architectural distortion. IMPRESSION: Stable post treatment changes in the right breast. No evidence of malignancy. BI-RADS CATEGORY: 2 BENIGN FINDING(S) RECOMMENDED FOLLOW-UP: 12M 12 MONTH FOLLOW-UP PQRS compliance statement: Patient information was entered into a reminder system with a target due date for the next mammogram. Mammography is a sensitive method for finding small breast cancers, but it does not detect them all and is not a substitute for careful clinical examination. A negative mammogram does not negate a clinically suspicious finding and should not result in delay in biopsying a clinically suspicious abnormality. "Our facility is accredited by the [employer] Mammography Program."
== END ==
LOC: MAMMO 11:56
PROVIDERS: ATTEND Family Medicine
DX: Z85.3 Personal history of malignant neoplasm of breast (principal)
CPT/HCPCS: 77066; G0279; 77062

== ENCOUNTER → 2021-06-16 | Outpatient (CLI) | payer MEDICARE ==
--- NOTE | 2021-06-16 15:59 | KCIC ---
EXAM: DUAL ENERGY X-RAY ABSORPTIOMETRY (DEXA). HISTORY: Postmenopausal screening. FINDINGS: The lowest measured T-score is -1.5 in the left hip, based on a bone mineral density of 0.7 57 g/cm^2. Refer to the worksheets for full detail. There has been a 1.8 percent decrease in density of the left hip and 0.0 percent decrease in density of the lumbar spine compared to a study performed 03/25/2019. IMPRESSION: 1. Low bone mass. Bone mineral density yields a T-score between -1.0 and -2.5. Fracture risk is incre ased. 2. FRAX report: Not calculated. METHODOLOGY: Dual energy x-ray absorptiometry was performed to measure bone mineral density. The foll owing analysis is based on the 2019 Official Positions of the International Society for Clinical Dens itometry: Measurements of the hips and the average of L1-L4 are preferred. When the spine and/or hip cannot be feasibly measured or interpreted, or in the setting of hyperparathyroidism, distal radial bone minera l density may be measured. The lumbar spine T-score is based on the average bone mineral density of L1-L4. In the setting of art ifact or anatomic abnormality, some lumbar levels may be excluded, and the remaining levels used for calculation. A single lumbar level is not used for diagnosis, and if only a single level is available for assessment, another anatomic site will be used to assign a diagnosis. The hip T-score is based on the bone mineral density measurement of the femoral neck or total proxima l femur of either side, whichever is lowest. Bilateral mean values are not used for diagnosis. The forearm T-score is derived from 33% of the distal radius of the nondominant forearm. Electronically signed by: Megan Aguilar MD (06/16/2021 3:56 PM) [id number]
== END ==
LOC: KCIC DEXA 15:09
PROVIDERS: ATTEND Internal Medicine Hematology & Oncology
DX: M85.88 Other specified disorders of bone density and structure, other site (principal); M81.0 Age-related osteoporosis without current pathological fracture; Z78.0 Asymptomatic menopausal state
CPT/HCPCS: 77080

== ENCOUNTER → 2021-12-06 | Outpatient (CLI) | payer MEDICARE ==
--- NOTE | 2021-12-06 16:02 | RAD ---
EXAM: Bilateral digital bilateral mammogram with tomosynthesis. HISTORY: 71-year-old female with a history of right breast cancer, status post right breast conservat ion therapy, presents for bilateral mammography. TECHNIQUE: Full-field digital craniocaudal, exaggerated craniocaudal and mediolateral oblique 2D and 3D tomosynthesis images of both breasts are obtained for evaluation. Computer aided detection was davida lied. COMPARISON: 12/02/2020 and 11/19/2019 BREAST PARENCHYMAL DENSITY: Level C - Heterogeneously dense. FINDINGS: There is stable architectural distortion within the right breast due to prior breast conser vation therapy. There is stable benign nodular asymmetry within the slightly superior lateral aspect of the right breast which is not seen on multiple projections, favoring summation artifact. There are few benign calcifications within both breasts. There is no new suspicious mass, consultation or dist ortion. IMPRESSION: BI-RADS Category 2: Benign finding(s). RECOMMENDATION: Annual mammography is recommended. If your mammogram demonstrates that you have dense breast tissue, which could hide abnormalities, and if you have other risk factors for breast cancer that have been identified, you might benefit from s upplemental screening tests that may be suggested by your ordering physician. Dense breast tissue, i n and of itself, is a relatively common condition. This information is not provided to cause undue c oncern, but rather to raise your awareness and to promote discussion with your physician regarding th e presence of other risk factors, in addition to dense breast tissue. A report of your mammography re sults will be sent to you and your physician. You should contact your physician if you have any ques tions or concerns regarding this report. Mammography is a sensitive method for finding small breast cancers, but it does not detect them all a nd is not a substitute for careful clinical examination. A negative mammogram does not negate a clin ically suspicious finding and should not result in delay in biopsying a clinically suspicious abnorma lity. PQRS compliance statement - Patient information was entered into a reminder system with a target due date for the next mammogram. "Our facility is accredited by the [employer] Mammography [employer]." Electronically signed by: Megan Aguilar MD (12/06/2021 4:00 PM) [id number]
== END ==
LOC: MAMMO 15:36
PROVIDERS: ATTEND Family Medicine
DX: R92.1 Mammographic calcification found on diagnostic imaging of breast (principal); Z85.3 Personal history of malignant neoplasm of breast
CPT/HCPCS: 77066; G0279; 77062